=== PATIENT | male | born 1970 | race Caucasian/White ===

== ENCOUNTER 2021-10-15 09:50 | Observation (INO) | payer OTHER ==
[2021-10-15] MEDS ORDERED: Ketorolac 15 MG/ML SDV IVPUSH ONE (10:23)
[2021-10-15] MEDS ORDERED: Lactated Ringers 1,000 ML IV ONE (10:23)
[2021-10-15] MEDS ORDERED: Sodium Chloride 0.9% 10 ML Syringe FLUSH ONE (11:00)
[2021-10-15] MEDS ORDERED: Iopamidol 612 MG/ML 100 ML Bottle IVPUSH ONE (11:00)
[2021-10-15] MEDS ORDERED: Piperacillin/Tazobactam 4.5 GM in Sodium Chloride 0.9% 100 ML IV ONE (11:32)
[2021-10-15] MEDS ORDERED: Morphine 2 MG/ML SYRINGE IVPUSH PRN (12:37)
[2021-10-15] MEDS ORDERED: Ondansetron 4 MG/2 ML SDV IVPUSH PRN (12:39)
[2021-10-15] MEDS ORDERED: Ketorolac 15 MG/ML SDV IVPUSH SCH (13:00)
[2021-10-15] MEDS: Acetaminophen 325 MG Tab PO SCH ×2 (14:22→21:31)
[2021-10-15] MEDS: Pantoprazole 40 MG Tab.CR PO SCH (14:22)
[2021-10-15] MEDS: Lactated Ringers 1,000 ML IV SCH (14:23)
[2021-10-15] MEDS: Ketorolac 15 MG/ML SDV IVPUSH SCH ×2 (17:11→21:32)
[2021-10-15] MEDS: Piperacillin/Tazobactam 4.5 GM in Sodium Chloride 0.9% 100 ML IV SCH (17:12)
[2021-10-15] MEDS ORDERED: Prazosin 1 MG Cap PO SCH (21:00)
[2021-10-15] MEDS ORDERED: Gabapentin 300 MG Cap PO SCH (21:00)
[2021-10-15] MEDS ORDERED: GABAPENTIN 300 MG PO SCH (21:45)
[2021-10-15] MEDS ORDERED: PRAZOSIN 5 MG PO SCH (21:45)
[2021-10-16] MEDS: Piperacillin/Tazobactam 4.5 GM in Sodium Chloride 0.9% 100 ML IV SCH ×2 (01:53→09:33)
[2021-10-16] MEDS: Ketorolac 15 MG/ML SDV IVPUSH SCH ×2 (05:12→09:33)
[2021-10-16] MEDS: Acetaminophen 325 MG Tab PO SCH ×2 (05:12→12:40)
[2021-10-16] MEDS: Pantoprazole 40 MG Tab.CR PO SCH (05:13)
[2021-10-16] MEDS: Lactated Ringers 1,000 ML IV SCH (08:18)
[2021-10-16] MEDS ORDERED: buPROPion 150 MG Tab.ER PO SCH (09:00)
[2021-10-16] MEDS ORDERED: Prazosin 1 MG Cap PO SCH ×2 (09:00→21:00)
[2021-10-16] MEDS ORDERED: Gabapentin 300 MG Cap PO SCH (09:00)
[2021-10-16] MEDS ORDERED: Meloxicam 7.5 MG Tab PO SCH ×2 (09:00)
== END 2021-10-16 17:03 | disposition home or self-care (01) ==
LOC: JD.ED 09:50 → SUPCPDRO 09:50 → JD.MS 12:55
PROVIDERS: ADMIT Surgery; ATTEND Surgery
DX: K57.20 Diverticulitis of large intestine with perforation and abscess without bleeding (principal); D72.829 Elevated white blood cell count, unspecified; Z79.899 Other long term (current) drug therapy
CPT/HCPCS: 36415; 74177; 80048; 80053; 81001; 83605; 83690; 85025; 87040; 96365; 96366; 96375; 96376; 99285; A9270; G0378; J1885; J2543; J3490; J7120; Q9967; 99284